=== PATIENT | male | born 1980 | race Caucasian/White ===

== ENCOUNTER 2023-08-24 13:47 | Emergency (ER) | payer OTHER, SELFPAY ==
[2023-08-24 13:50] VITALS: BP 126/67; PULSE 72; RESP 18; TEMP 36.8; O2SAT 98; BMI 32.9
--- NOTE | 2023-08-24 13:58 | ED_ITS ---
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 He was not wearing a respiratory or other protective respiratory gear. This occurred around 645am. He finished his shift and although he felt better, he still had some residual nausea and slight dizziness. He told his boss, who sent the patient to the ED for evaluation. he went to occupational health and they told him to come to the ED for evaluation. Patient told me that he has had this happened before numerous times and usually the symptoms only linger a few hours. No chest pain. He denied smoking or vaping. He denied prior history of asthma, COPD or lung disease. Related Data Home Medications Medication Instructions Recorded Confirmed No Known Home Medications 08/24/23 08/24/23 Allergies Allergy/AdvReac Type Severity Reaction Status Date / Time No Known Drug Allergies Allergy Verified 08/24/23 13:50 [facility] Social History Smoking status: Never smoker Exam Narrative Exam Narrative: Nurses notes and vital signs reviewed and patient is not hypoxic. afebrile General: Well-appearing and in no apparent distress. Skin: Warm, dry, no pallor noted. No rash. Head: Normocephalic, atraumatic. Neck: Supple, non-tender. No crepitus or subcutaneous emphysema. Eye: Pupils are equal, round and EOMI. No scleral icterus. Cardiovascular: Regular Rate and Rhythm without murmur, gallop or rub. Respiratory: No accessory muscle use or respiratory distress. Lungs are clear to auscultation, no wheezing, rales or rhonchi Musculoskeletal: normal ROM, no calf or popliteal tenderness, no lower extremity edema/swelling Neurological: A&O x4. No cranial nerve dysfunction observed. No truncal ataxia. Moves all extremities. Sensation intact. Psychiatric: Cooperative and interactive. Normal mood and affect. Constitutional Vital Signs, click to edit/add: Last Vital Signs Temp 98.2 F 08/24/23 13:50 Pulse 72 08/24/23 13:50 Resp 18 08/24/23 13:50 BP 126/67 08/24/23 13:50 Pulse Ox 95 08/24/23 14:11 O2 Del Method Room Air 08/24/23 14:11 Course Vital Signs Vital signs: Vital Signs Temperature 98.2 F 08/24/23 13:50 Pulse Rate 72 08/24/23 13:50 Respiratory Rate 18 08/24/23 13:50 Blood Pressure 126/67 08/24/23 13:50 Pulse Oximetry 98 08/24/23 13:50 Temperature 98.2 F 08/24/23 13:50 Pulse Rate 72 08/24/23 13:50 Respiratory Rate 18 08/24/23 13:50 Blood Pressure 126/67 08/24/23 13:50 Pulse Oximetry 95 08/24/23 14:11 Oxygen Delivery Method Room Air 08/24/23 14:11 Medical Decision Making MDM Narrative Medical decision making narrative: the patient was given oral dissolvable Zofran tablets and was ordered to receive a nebulized treatment of albuterol. Patient discharged and instructed to go back to Occupational Health to complete his work-related testing. Discharge Plan Discharge Chief Complaint: Shortness of Breath/Dyspnea Clinical Impression: Chemical exposure, Pneumonitis due to fumes and vapors Patient Disposition: Home, Self-Care Time of Disposition Decision: 14:58 Prescriptions / Home Meds: No Action No Known Home Medications Instructions: Pneumonitis (ED) Stand Alone Forms: Portal Instructions Referrals: [facility] [Outside] - 08/24/23 3:00 pm Discharge Date/Time: 08/24/23 15:02
[2023-08-24] MEDS: ONDANSETRON 4 MG RAPDIS TABLET SL (14:01)
[2023-08-24 14:06] VITALS: O2SAT 96
[2023-08-24] MEDS: ALBUTEROL SULFATE 2.5 MG/3 ML VIAL NEB IH (14:10)
[2023-08-24 14:11] VITALS: O2SAT 95
== END 2023-08-24 15:02 | disposition home or self-care (01) ==
PROVIDERS: Emergency Provider Emergency Medicine; PCP Family Medicine
DX: Z77.098 Contact with and (suspected) exposure to other hazardous, chiefly nonmedicinal, chemicals (principal); J68.0 Bronchitis and pneumonitis due to chemicals, gases, fumes and vapors
CPT/HCPCS: 94640; 99283

== ENCOUNTER 2025-01-28 10:36 | Outpatient (OUT) | payer OTHER, SELFPAY ==
--- NOTE | 2025-01-28 10:40 | NM_ITS ---
Patient Name: KRISTIN SHAW MR#: [id number] : 1980 Exam Date: 01/28/2025 Ordering Doctor: DR Michele Barrera . RADIOLOGY REPORT PROCEDURE: NM LEXA PERF SPECT REST STR COMPARISON: None. INDICATIONS: CHEST PAIN, DIZZINESS, SHORTNESS OF BREATH TECHNIQUE: Exam Description: Rest/Stress one day protocol gated SPECT Rest Imagin.0 mCi Tc-99m Cardiolite IV on 01/28/2025 Stress Imaging 31.0 mCi Tc-99m Cardiolite IV on 01/28/2025 Exercise Protocol: Dylan Heart Rate (bpm): Rest: 49 Max: 151 PMHR: 85 Blood Pressure: Rest: 122/90 Max: 162/90 Exercise Time: Minutes: 9 Seconds: 30 Stage Reached: Stage: 4 Mets 11.7 Symptoms: Rest and peak stress ECG findings were pending and the exercise portion of the study was pending per attending physician [facility] . For more details please see separate cardiac stress test report. FINDINGS: QUALITY OF STUDY: Adequate PERFUSION DEFECT: LOCATION: Inferoseptal SIZE: Small SEVERITY: Mild TYPE: Reversible WALL MOTION: Normal LV SIZE: 148 mL. TID / TCD: 0.9 LVEF: Calculated EF 62%. SUMMARY: Abnormal Myocardial perfusion imaging study CONCLUSION: Abnormal myocardial perfusion stress test showing mild inferoseptal ischemia Normal left ventricle systolic function, EF 62% No transient ischemic dilatation, TID 0.9 Dilated left ventricle, LVEDV 148 ml EKG stress test is reported separately Dictated by: Veronica Sapp MD on 01/28/2025 at 14:57 Approved by: Veronica Sapp MD on 01/28/2025 at 15:05
--- NOTE | 2025-01-28 12:32 | PC.NURSE ---
Nursing Note Cardiac Stress Test Reviewed: Medication, allergies and patient history reviewed. Stress Test: [ x] Patient tolerated stress test well. [ ] Patient unable to tolerate walking on treadmill. Switched to Lexiscan stress test. [ x] No chest pain noted per patient [ ] Chest pain that resolved prior to leaving stress lab. [ ] No dyspnea noted. [ x] Dyspnea that resolved prior to leaving stress lab. [ x] Patient left stress lab asymptomatic and hemodynamically stable. [ ] Patient taken to the Emergency Room due to non-resolving symptoms following stress test. [ x] Patient achieved target heart rate. [ ] Patient unable to achieve target heart rate. [ ] Aminophylline administered as reversal agent to Lexiscan (Regadenoson). [ ] Nitro administered. Nursing Comments: Patients shortness of breath was reported during the exam. he stated that it was the same shortness of breath that is the reason we are doing the test. patient stated he was back to baseline before leaving the stress lab
--- NOTE | 2025-01-28 13:46 | P.STRESS_ITS ---
Stress Test Stress Test Allergies Allergy/AdvReac Type Severity Reaction Status Date / Time No Known Drug Allergies Allergy Verified 08/24/23 13:50 Requesting physician: Michele Barrera Procedure: This was a Treadmill stress test with myocardial perfusion imaging performed at the [facility] on 01/28/2025. Intravenous line was secured. The patient was attached to electrocardiographic monitoring. Baseline vital signs and ECG were obtained. The patient exercised on the treadmill according to the Dylan protocol. Cardiolite was administered at peak exercise. The patient then went on to obtain myocardial perfusion imaging. The patient exercised for 9 minutes and 30 seconds on the treadmill and reached stage IV of the Dylan protocol and achieved 11.7 METS. Resting heart rate 49 BP and peak heart rate was 151 bpm representing 84% of maximal predicted heart rate. Resting blood pressure was 122/90 and peak blood pressure 162/90. The test was stopped due to target heart rate being achieved. General Information: Reason for Stress Test: Chest pain, shortness of breath, palpitations. Cardiac History and Risk Factors: Hypertension. Resting 12 - Lead Electrocardiogram: Marked sinus bradycardia, no ST changes. Heart rate 49 bpm. Stress Test: Protocol: Dylan protocol. Exercise Capacity: Good. Blood Pressure Response: Resting hypertension, appropriate blood pressure response to exercise. Rhythm: Sinus with no arrhythmia. ST - Response: No ischemic ST changes seen. Patient Response: Shortness of breath. Interpretation: 1. No evidence of ischemic ECG changes seen during and after treadmill exercise stress test. 2. Williamson treadmill score of +9.5 is associated with low risk for long-term cardiac events. 3. Myocardial perfusion images will be reported separately.
== END 2025-01-28 10:37 | disposition home or self-care (01) ==
LOC: NM 10:38
PROVIDERS: PCP Family Medicine; Visit Provider Family Medicine
DX: R07.9 Chest pain, unspecified (principal); R94.39 Abnormal result of other cardiovascular function study
CPT/HCPCS: 78452; 93017; A9500

== ENCOUNTER 2025-02-12 11:09 | Outpatient (OUT) | payer OTHER, SELFPAY | END 2025-02-12 11:10 | disposition home or self-care (01) | LOC: US 11:09 | PROVIDERS: PCP Family Medicine; Visit Provider Internal Medicine Interventional Cardiology | DX: I10 Essential (primary) hypertension (principal) | CPT/HCPCS: 76775; 93975 ==

== ENCOUNTER 2025-09-04 07:32 | Emergency (ER) | payer OTHER, SELFPAY ==
[2025-09-04 07:36] VITALS: BP 142/92; PULSE 61; TEMP 36.6; O2SAT 98; BMI 31.9
[2025-09-04] MEDS: FLUORESCEIN SODIUM 1 MG STRIP OP ×2 (07:47→08:35)
--- NOTE | 2025-09-04 07:51 | ED.GENADUL1 ---
HPI HPI - General Adult General Chief complaint: Eye Problems Stated complaint: L EYE PAIN Time Seen by Provider: 09/04/25 07:37 Source: patient Mode of arrival: walk-in Limitations: no limitations History of Present Illness HPI narrative: 45-year-old male presented to the emergency department for left eye irritation. Began about 130 this morning. He does not recall getting anything into his eye. There is no trauma. He does not wear contact lenses. No symptoms in the right eye. He noticed that his left eye was red and the right 1 was not. Symptom is continuous. Related Data Previous Rx's ?Medication ?Instructions ?Recorded ketorolac 0.5 % eye drops (Acular) 1 drp ophthalmic (eye) Q6H PRN 09/04/25 pain #5 mL sulfacetamide sodium 10 % eye drops 2 drp ophthalmic (eye) Q4H #15 mL 09/04/25 Allergies Allergy/AdvReac Type Severity Reaction Status Date / Time No Known Drug Allergies Allergy Verified 08/24/23 13:50 Review of Systems ROS Narrative A ten point review of systems is negative except as noted above. PFSH PFSH Social History Smoking status: Never smoker Little interest or pleasure in doing things: not at all Feeling down, depressed, or hopeless: not at all Exam Narrative Exam Narrative: Nurses note and vital signs reviewed General:The patient appears well and in no apparent distress.Patient is resting comfortably on cart. Skin:Warm, dry, no pallor noted.There is no rash noted. Head:Normocephalic, atraumatic Eye: Right eye appears normal. Left conjunctiva is injected. No foreign body is found with lid eversion. Fluorescein staining and Melendrez lamp examination shows no corneal abrasions. The globe is intact. The pupils are equal and reactive to light. Ears, Nose, Mouth, and Throat: oral mucosa is moist. Nares patent. Cardiovascular:Regular Rate and Rhythm Respiratory:Patient is in no distress, no accessory muscle use Back:non-tender, no CVA tenderness bilaterally to percussion. GI: Soft and nontender Musculoskeletal: The patient has no evidence of calf tenderness, no pitting edema, symmetrical pulses noted bilaterally Neurological:A&O, normal speech Psychiatric:Cooperative Constitutional Vital Signs, click to edit/add: Last Vital Signs Temp 97.9 F 09/04/25 07:36 Pulse 61 09/04/25 07:36 Resp 18 09/04/25 07:36 BP 142/92 H 09/04/25 07:36 Pulse Ox 98 09/04/25 07:36 O2 Del Method Room Air 09/04/25 07:36 Course Vital Signs Vital signs: Vital Signs Temperature 97.9 F 09/04/25 07:36 Pulse Rate 61 09/04/25 07:36 Respiratory Rate 18 09/04/25 07:36 Blood Pressure 142/92 H 09/04/25 07:36 Pulse Oximetry 98 09/04/25 07:36 Oxygen Delivery Method Room Air 09/04/25 07:36 Temperature 97.9 F 09/04/25 07:36 Pulse Rate 61 09/04/25 07:36 Respiratory Rate 18 09/04/25 07:36 Blood Pressure 142/92 H 09/04/25 07:36 Pulse Oximetry 98 09/04/25 07:36 Oxygen Delivery Method Room Air 09/04/25 07:36 Medical Decision Making MDM Narrative Medical decision making narrative: We have irrigated his eye with Singh lens set up. Repeat examination again shows no foreign body or corneal abrasion with fluorescein staining. He will be placed on Acular and Bleph-10. Referral made to ophthalmology. Treatment diagnosis and follow-up were discussed with the patient. Differential Diagnosis Differential Diagnosis: Foreign body, corneal abrasion Discharge Plan Discharge Chief Complaint: Eye Problems Clinical Impression: Foreign body sensation, left eye Patient Disposition: Home, Self-Care Time of Disposition Decision: 08:37 Condition: Good Mode of Transportation: Private Vehicle Prescriptions / Home Meds: New ketorolac [Acular] 0.5 % drops 1 drp ophthalmic (eye) Q6H PRN (Reason: pain) Qty: 5 0RF sulfacetamide sodium 10 % drops 2 drp ophthalmic (eye) Q4H Qty: 15 0RF Print Language: [place] Instructions: Eye Foreign Body (ED) Referrals: Michele Barrera MD [Primary Care Provider, Family Practice] - 1 week ASHLEY EDMONDS [Physician, Opthalmology] - 1 week
[2025-09-04] MEDS: TETRACAINE HCL 0.5% OP SOL 80 DROP/4 ML BOTTLE OP (08:03)
[2025-09-04] MEDS: 0.9 % SODIUM CHLORIDE 500 ML IV (08:04)
--- OUTSIDE RECORDS SUMMARY | 2025-09-04 08:49 | XMS_ITS | Patient Health Record ---
Author Organization [facility] [place] Address [address] [place] [address] Care Team Providers Care Kiln Fireman Name Role Phone Hiram Barrera Primary Care Provider Allergies No Known Allergies Results Component Value Reference Range Notes NM lexa perf SPECT rest str Reviewed date:01/28/2025 07:15:59 PM Interpretation: Performing Lab: Notes/Report: Source Facility: [place] [address] Nuclear Medicine Report Signed Patient: KRISTIN SHAW II MR#: [id number] : 1980 Acct:[id number] Age/Sex: 44 / M ADM Date: 01/28/25 Loc: NM Attending Dr: Michele Barrera M.D. Ordering Physician: Michele Barrera M.D. Date of Service: 01/28/25 Procedure(s): NM lexa perf SPECT rest str Accession Number(s): [id number] cc: Michele Barrera M.D. Patient Name: KRISTIN SHAW MR#: [id number] : 1980 Exam Date: 01/28/2025 Ordering Doctor: DR Michele Barrera . RADIOLOGY REPORT PROCEDURE: NM LEXA PERF SPECT REST STR COMPARISON: None. INDICATIONS: CHEST PAIN, DIZZINESS, SHORTNESS OF BREATH TECHNIQUE: Exam Description: Rest/Stress one day protocol gated SPECT Rest Imagin.0 mCi Tc-99m Cardiolite IV on 01/28/2025 Stress Imaging 31.0 mCi Tc-99m Cardiolite IV on 01/28/2025 Exercise Protocol: Dylan Heart Rate (bpm): Rest: 49 Max: 151 PMHR: 85 Blood Pressure: Rest: 122/90 Max: 162/90 Exercise Time: Minutes: 9 Seconds: 30 Stage Reached: Stage: 4 Mets 11.7 Symptoms: Rest and peak stress ECG findings were pending and the exercise portion of the study was pending per attending physician [facility] . For more details please see separate cardiac stress test report. FINDINGS: QUALITY OF STUDY: Adequate PERFUSION DEFECT: LOCATION: Inferoseptal SIZE: Small SEVERITY: Mild TYPE: Reversible WALL MOTION: Normal LV SIZE: 148 mL. TID / TCD: 0.9 LVEF: Calculated EF 62%. SUMMARY: Abnormal Myocardial perfusion imaging study CONCLUSION: Abnormal myocardial perfusion stress test showing mild inferoseptal ischemia Normal left ventricle systolic function, EF 62% No transient ischemic dilatation, TID 0.9 Dilated left ventricle, LVEDV 148 ml EKG stress test is reported separately Dictated by: Veronica Sapp MD on 01/28/2025 at 14:57 Approved by: Veronica Sapp MD on 01/28/2025 at 15:05 Dictated By: Veronica Sapp M.D. Signed By: 01/28/25 1506 DD/ 1505 TD/TT: Submarine Advisory Team Watch Officer: Reason For Referral Diagnosis 1 Abnormal stress test (R94.39) Referral Organization [facility] Referring Provider First Name Hiram Referring Provider Last Name Bruce Referring Provider Speciality [facility] Referred Provider [facility] Cardiology, [facility] Referred Provider Specialty Cardiology Referral Priority Routine Medications Medication SIG (Take, Route, Frequency, Duration) Notes Start Date End Date Status Carvedilol 6.25 MG 1 tablet with food Orally Twi ce a day; Duration: 90 days ActiveAspirin Adult Low Dose 81 MG1 tablet Orally Once a day; Duration: 30 days 5ActiveIronActiveCefdinir 300 MG2 capsule Orally once a day; Duration: 10 days5ActiveEzetimibe 10 MG1 tablet Orally Once a day; Duration: 90 daysActiveDoxycycline Monohydrate 100 MG1 tablet Orally bid; Duration: 10 days 5ActiveDiclofenac Sodium 75 MG1 tablet as needed Orally Twice a day; Duration: 30 days5ActiveamLODIPine Besylate 10 MG1 tablet Orally Once a day; Duration: 90 daysActiveMeclizine HCl 25 MG1 tablet as needed Orally Q 6 hours5ActivePravastatin Sodium 20 MG1 tablet Orally Once a day; Duration: 90 daysActivePotassiumActive Social History Tobacco Use: Social History Observation Description Date Details (start date - stop date) Former Smoker 11/07/1999 - 11/07/2011 Tobacco Control (Standard) Question Answer Notes Tobacco use: Former smoker When did you start smoking?11/07/1999When did you stop smoking?11/07/2011How long has it been since you last smoked?Greater than 10 yearsAdditional Findings: Tobacco gug-gywbPu-yptqb cigarette smoker (1-9/day)AUDIT-C (Standard) Question Answer Notes Did you have a drink containing alcohol in the p ast year? No Jctqcn0MduzqpptlbzociEzhiixkr Problems Problem Type SNOMED Code ICD Code Onset Dates Problem Status W/U Status Risk Notes Problem Palpitations (47810428) Palpitations (R00 .2) ActiveconfirmedProblemChest pain (06468978)Chest pain (R07.9)Activeconfirmed ProblemFatigue (76004250)Fatigue (R53.83)ActiveconfirmedProblemAnxiety (47569123)Anxiety (F41.9)ActiveconfirmedProblemCardiovascular stress test abnormal (497902068)Abnormal stress test (R94.39)ActiveconfirmedProblem Depression (080522998)Depression (F32.9)ActiveconfirmedProblemUrinary frequency (685567318)Urinary frequency (R35.0)ActiveconfirmedProblemInsomnia (859780790) Insomnia (G47.00)ActiveconfirmedProblemSyncope (632549686)Syncope (R55)Active confirmedProblemCervical disc disease (522889378)Cervical disc disease (M50.90) ActiveconfirmedProblemOverweight (744336879)Over weight (E66.3)Activeconfirmed ProblemInguinal hernia (689821537)Inguinal hernia (K40.90)ActiveconfirmedProblem Diverticular disease (081009577)Diverticular disease (K57.90)Activeconfirmed ProblemHypercholesterolemia (03343722)Hypercholesterolemia (E78.00)Active confirmedProblemHamstring injury, left, initial encounter (S76.302A)Active confirmedProblemHematoma (65050032)Hematoma (T14.8XXA)Activeconfirmed Vital Signs Temperature 97.8 degrees Fahrenheit 02/26/2025 Blood pressure ijwwnhovn94 mm Hg05/22/20253269Iznlgs39 in05/22/2025lood pressure rapxgbvc304 mm Hg05/22/20251977Wsidrg253.6 lbs05/22/2025BMI32.49 kg/m205/22/2025 Encounters Encounter Location Date Provider Diagnosis [address] [place] [address] 05/22/2025 Hiram Hoy Hematoma T14.8XXA [address] [place] [address] 01/16/2025 Hiram Hoy Chest pain R07.9 and Well adult Z00.00 [address] [place] [address] 02/26/2025 Hiram Hoy Acute bronchitis, unspecified organism J20.9 ; Acute non-recurrent sinusitis, unspecified location J01.90 and Nasal congestion R09.81 [address] [place] [address] 01/28/2025 Hiram Hoy Abnormal stress test R94.39 [facility] [address] [place] [address] 01/28/2025 Hiram Hoy [address] [place] [address] 01/29/2025Doug HoyEncounter for drug therapy Z79.[address] [address]/05/2025Doug HoyUrinary frequency R35.[address] [place] [address]/Doug [facility] [facility] [place] [address]/12/2024Hiram Barrera Assessments Encounter Date Diagnosis (ICD Code) Assessment Notes Treatment Notes Treatment Clinical Notes Section Notes 01/16/2025 Chest pain (ICD-10 - R07.9) 01/16/2025Well adult (ICD-10 - Z00.00)02/26/2025ute bronchitis, unspecified organism (ICD-10 - J20.9)Rest and drink more liquids, especially water. You may use a humidifier or vaporizer to help keep the drainage moist. Qxid-ccq-vebeiyj Nasal Saline may help the stuffy and runny nose. Use Ibuprofen and or Tylenol as needed for fever, chills, body aches or pain. Children 5 years old should not be given mstv-red-asdttmz cough and cold medications such as guaifenesin and dextromethorphan. If you're over age 5, you may try gwzs-idy-ceiqnww cold medications such as guaifenesin and dextromethorphan, or multi-symptom cold reliever such as Dayquil to help reduce the symptoms. Antibiotics have been pre scribed. You should take these until completed and follow the directions. Antibiotics can sometimescause upset stomach, and in rare cases, serious allergic reactions or serious gastrointestinal problems. If you start having severe abdominal pain, severe vomiting, or bloody diarrhea, you should be r eevaluated by your physician or urgent care immediately. Follow up with your Primary Care Provider or return to clinic if symptoms do not improve within 3-5 days. If you develop severe symptoms such as shortness of breath, repeated vomiting, coughing up blood, or chest pain you should go to the emergency room or call [id number]/Hematoma (ICD-10 - T14.8XXA)01/28/2025bnormal stress test (ICD-10 - R94.39)01/29/2025Encounter for drug therapy (ICD-10 - Z79.899) 02/09/2025Urinary frequency (ICD-10 - R35.0)5Acute non-recurrent sinusitis, unspecified location (ICD-10 - J01.90)Rest and drink more liquids, especially water. You may use a humidifier or vaporizer to help keep the drainage moist. Nnsu-uvs-pumlgmg Nasal Saline may help the stuffy and runny nose. Use Ibuprofen and or Tylenol as needed for fever, chills, body aches or pain. Children 5 years old should not be given vzfe-tkf-kpfixtq cough and cold medications such as guaifenesin and dextromethorphan. If you're over age 5, you may try ugck-xcm-sfyiill cold medications such as guaifenesin and dextromethorphan, or multi-symptom cold reliever such as Dayquil to help reduce the symptoms. Antibiotics have been prescribed. You should take these until completed and follow the directions. Antibiotics can sometimescause upset stomach, and in rare cases, serious allergic reactions or serious gastrointestinal problems. If you start having severe abdominal pain, severe vomiting, or bloody diarrhea, you should be reevaluated by your physician or urgent care immediately. Follow up with your Primary Care Provider or return to clinic if symptoms do not improve within 3-5 days02/26/2025Nasal congestion (ICD-10 - R09.81) Plan Of Treatment Pending Test Test Name Order Date Exercise Stress Nuclear Test 03/28/2024 Holter Test 03/28/2024 CMP (COMPLETE METABOLIC PANEL) 4 HEMOGLOBIN A1C (GLYCO) 01/16/2025 HEMOGLOBIN A1C (GLYCO) 01/31/2024 LIPID PANEL (CHOL/TRIG/HDL/LDL) 01/31/20 LIPID PANEL (CHOL/TRIG/HDL/LDL) 01/17/20 CBC WITH DIFF (EXP 08/2025) 01/31/2024 PSA, PROSTATE-SPECIFIC ANTIGEN CT Lower Leg RT w/o contrast * (Optional 3D Rendering) 05/22/2025 EKG w Interp & Report - performed 2023 BMP w/GFR 01/29/2025 RHEUMATOID PANEL 01/31/2024 Treadmill Stress Test with Nuclear Imagi ng 01/16/2025 STOOL OCCULT BLOOD 01/31/2024 TESTOSTERONE, TOTAL 01/31/2024 VIT D 1 25 DIHYDROXY 01/31/2024 CTA CHEST WO W CON 03/28/2024 US KIDNEYS 02/09/2025 XR TIB_FIB RT 2V 05/22/2025 THYROID PANEL (T4/TSH/FREE T3) 4 THYROID PANEL (T4/TSH/FREE T3) 5 Erythrocyte Sedimentation Rate 4 PSA, SCREENING 01/16/2025 CMP (COMP MET GRAY) w/eGFR CKD-EPI 2024 CBC WITH DIFF 01/16/2025 Insurance Providers Payer Name Payer Address Payer Phone Subscriber Number Group Number Insured Name Patient Relationship to Insured Coverage Start Date Coverage End Date [id number] [facility] [employer] [address] [place] [address] [id number] Sri Shaw - patient is the [id number] 2024 Medications Administered Medication Instructions Date of Administration Dosage Notes Kenalog-40 20 yy866Jqlmhdumq Zowoqlqpfyqu88/30/612495 qh46Qozjypiisefc Citrate mg60 Medical (General) History Medical History History ICD Code Hypercholesterolemia E78.00 Urinary frequency R35.0 Over weight E66.3 Fatigue R53.83 Inguinal hernia K40.90 Depression F32.9 Syncope R55 Cervical disc disease M50.90 insomnia palpitationsfatigueanxietydiverticular diseaseCOVID-19U07.1ZvdpgirvwtI61.A Surgical History Surgery Date(Month/Year) Analplasty inguinal ngywanpkfhxfr3833Hnzrpmyqwuav
--- OUTSIDE RECORDS SUMMARY | 2025-09-04 08:49 | XMS_ITS | Clinical Summary ---
Author Organization [facility] [employer] [facility] Address [facility] – [id number] [place] [address] Care Team Providers Care Service Administrator Name Role Phone Unavailable Primary Care Provider Unavailabl e Social History Tobacco UseTypesPacks/DayYears UsedDateSmoking Tobacco: Never AssessedChildcare AnswerDate DsrapawqYevvuixxwMhihkcc65/12/2019EmploymentAnswerDate Recorded EzfmqfsuxnRmmtlaj42/12/2019Sex and Gender InformationValueDate RecordedSex Assigned at BirthNot on fileLegal HcwGala9305/13/2015 12:01 PM EDTGender Identity Not on fileSexual OrientationNot on file Plan of Treatment Health MaintenanceDue DateLast DoneCommentsDepression Obxwksbcz78/10/1994Tobacco Vxlbkyhbm45/10/1994Adult BMI Alsdjvdal71/10/2000DTaP,Tdap and Td Vaccines (1 - Tdap)2001Influenza Nctmadf2506/08/2025 Medical Devices Not on file
--- OUTSIDE RECORDS SUMMARY | 2025-09-04 08:49 | XMS_ITS | Clinical Summary ---
Author Organization [facility] Address [address] [place] [address] Care Team Providers Care Acupuncture Physician Name Role Phone Michele Barrera MD Primary Care Provider [phone] Allergies No known active allergies Medications MedicationSigDispense QuantityRefillsLast FilledStart DateEnd DateStatus aspirin 81 mg chewable tablet Indications:Cardiovascular stress test abnormalChew 1 tablet (81 mg) in the morning. 30 tablet 110/ctive pravastatin (Pravachol) 20 mg tablet Indications:Mixed hyperlipidemiaTake 1 tablet (20 mg) by mouth at bedtime. 90 tablet //ctive ezetimibe (Zetia) 10 mg tablet Indications:Mixed hyperlipidemiaTake 1 tablet (10 mg) by mouth in the morning. 90 tablet //ctive amLODIPine (Norvasc) 10 mg tablet Indications:Cardiovascular stress test abnormal,Primary hypertensionTake 1 tablet (10 mg) by mouth in the morning. 90 tablet /ctive carvedilol (Coreg) 6.25 mg tablet Indications:Cardiovascular stress test abnormal,Primary hypertensionTake 1 tablet (6.25 mg) by mouth with breakfast and with evening meal. 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 180 tablet 309/879285/6Active Active Problems ProblemNoted DateDiagnosed DateRight arm rxmnwozg50/02/2025Benign hypertensive kidney disease with chronic kidney kjzeruv3507/09/2025Renal insufficiency 07/09/2025Sleep apnea07/09/20251171Tadtqbx38/25/2025bnormal stress test07/02/2025 Cervical disc isggnfd4707/02/2025hest pain07/02/20252424Cxgzidjxjp65/25/2025 Diverticular fvmtehn2107/02/20258616Ugkjkss87/25/0113Togripwm94/25/2025Hamstring injury, left, initial /25/2025HTN (hypertension)07/02/2025 Pjvsziumygnrqj36/25/2025Inguinal hgdipu1007/02/20254827Vtzbstzh84/25/2025Major depressive disorder, single episode, bmmbtqobvth34/25/6576Kbrjxzpjcz68/25/2025 Lccabgzsjrak64/25/2025Right groin pain07/02/20259314Aqhjcsr02/25/2025Urinary /25/2025 Encounters DateTypeDepartmentCare LseqChefajlrxwz73/06/2025Telephone [facility] [address] [facility] [address] Andria Tomlinson MA 07/10/2025Telephone [facility] [address] [facility] [address] Rowan Davis MA 07/02/2025 1:00 PM EDTOffice Visit [facility] [address] [place] [facility] [address] Veronica Sapp MD Right arm numbness (Primary Dx); 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 (CMS/HCC); Abnormal stress test; Hyperlipidemia, unspecified hyperlipidemia type; Renal insufficiency; Sleep apnea, unspecified type; COSTELLO (dyspnea on exertion)07/02/2025Orders Only [facility] [address] [facility] [place] [address] Lesa Michael MA Essential hypertension (Primary Dx); Abnormal stress test; COSTELLO (dyspnea on exertion)07/02/2025Telephone [facility] [address] [facility] [phone] Rowan Davis MA 07/02/2025Telephone [facility] [address] [facility] [place] [phone] Rowan Davis MA from Last 3 Months Family History Medical HistoryRelationNameCommentsHypertensionFatherHeart diseaseMaternal GrandmotherRelationNameStatusCommentsFatherAliveMaternal GrandmotherMotherAlive SisterAlive Social History Tobacco UseTypesPacks/DayYears UsedDateSmoking Tobacco: FormerCigarettes Smokeless Tobacco: Never Tobacco Cessation:Counseling Given: Not Answered Alcohol UseStandard Drinks/WeekCommentsYes0 (1 standard drink = 0.6 oz pure alcohol)occasionalSex and Gender InformationValueDate RecordedSex Assigned at CeonlWeiv12/01/2025 3:21 PM EDTLegal ZakIrxf1201/30/2025 2:05 PM EDTGender NzwxznydXwqi74/01/2025 3:21 PM EDTSexual OrientationHeterosexual or Straight 02/05/2025 3:21 PM EDT Last Filed Vital Signs Vital SignReadingTime TakenCommentsBlood Otzvvwtw517/9309 1:08 PM EDT Llrrj397307/02/2025 1:08 PM EDTTemperature--Respiratory Rate--Oxygen Rwjbvxfygr99% 07/02/2025 1:08 PM EDTInhaled Oxygen Concentration--Siyvng710 kg (236 lb) 07/02/2025 1:08 PM PPEXdthhi438.9 cm (6')07/02/2025 1:08 PM EDTBody Mass Index 32.0109 1:08 PM EDT Plan of Treatment Health MaintenanceDue DateLast DoneCommentsDepression Jjgxrqcss34/10/1994 Varicella Vaccines (1 of 2 - 13+ 2-dose series)1995Hepatitis B Vaccines (1 of 3 - 19+ 3-dose series)2001Adult Yeznwiz7005/17/2004HPV Vaccines (1 - 3- dose SCDM series)2009COVID-19 Vaccine (3 - 2024- season)2025 08/15/2021, 07/22/2021Influenza Vaccine (#1)2025Zoster Vaccines (1 of 2) 2032HIB VaccinesAged OutNo longer eligible based on patient's age to complete this topicIPV VaccinesAged OutNo longer eligible based on patient's age to complete this topicMeningococcal B VaccineAged OutNo longer eligible based on patient's age to complete this topicMeningococcal VaccineAged OutNo longer eligible based on patient's age to complete this topicPneumococcal Vaccine: Pediatrics (0 to 5 Years) and At-Risk Patients (6 to 64 Years)Aged OutNo longer eligible based on patient's age to complete this topicRotavirus VaccinesAged Out No longer eligible based on patient's age to complete this topic Insurance * Guarantor: Huey Del Rio IIAccount TypeRelation to PatientDate of BirthPhone Billing AddressPersonal/DfwdotNlwj1980 [address] [facility] [address] [address] [place] [address] Care Teams Team MemberRelationshipSpecialtyStart DateEnd Date Michele Barrera MD [address] [facility] [address] [address] PCP - GeneralFamily Medicine02/05/25
== END 2025-09-04 08:50 | disposition home or self-care (01) ==
LOC: ER 08:45
PROVIDERS: Emergency Provider Emergency Medicine; PCP Family Medicine
DX: H57.8A2 Foreign body sensation, left eye (principal)
CPT/HCPCS: 99284